=== PATIENT | female | born 1930 | race Caucasian/White ===

== ENCOUNTER 2020-01-27 09:20 | Emergency (ER) | payer MEDICARE ==
[~2020-01-27] VITALS: Ht 157.5 cm; Wt 45.4 kg
[~2020-01-27 09:20] MED LIST: ACET325T9 PO; BISA10SU4 PR; CALC200T23 PO; OLAN5TAB7 PO; PSYL3.4P PO
--- NOTE | 2020-01-27 09:37 | PHYS DOC ---
Past Medical History Past Medical History: Dementia, Unknown, Other Additional Past Medical Histor: UNKNOWN OTHER THAN "ANEURSYM" (DEVIN MONTES DE OCA APRN) Past Surgical History: Other Additional Past Surgical Histo: unknown (DEVIN MONTES DE OCA APRN) Smoking Status: Former Smoker Alcohol Use: None Drug Use: None (DEVIN MONTES DE OCA APRN) General Adult EDM: Chief Complaint: FACE PROBLEM HPI: HPI: Patient is a 89 year old female [facility] [place] for evaluation of facial redness and swelling that was noticed yesterday. She has not been given any new medications. She has not had any airway compromise. Per EMS report patient is alert to self which is her baseline. (DEVIN MONTES DE OCA APRN) Review of Systems: Review of Systems: Constitutional: Denies fever or chills. [] Eyes: Denies change in visual acuity. [] HENT: Denies nasal congestion or sore throat. [] Respiratory: Denies cough or shortness of breath. [] Cardiovascular: Denies chest pain or edema. [] GI: Denies abdominal pain, nausea, vomiting, bloody stools or diarrhea. [] : Denies dysuria. [] Musculoskeletal: Denies back pain or joint pain. [] Integument: Facial redness and swelling. [] Neurologic: Denies headache, focal weakness or sensory changes. [] Endocrine: Denies polyuria or polydipsia. [] Lymphatic: Denies swollen glands. [] Psychiatric: Denies depression or anxiety. [] (DEVIN MONTES DE OCA APRN) Heart Score: Risk Factors: Risk Factors: DM, Current or recent (<one month) smoker, HTN, HLP, family history of CAD, obesity. Risk Scores: Score 0 - 3: 2.5% MACE over next 6 weeks - Discharge Home Score 4 - 6: 20.3% MACE over next 6 weeks - Admit for Clinical Observation Score 7 - 10: 72.7% MACE over next 6 weeks - Early Invasive Strategies (DEVIN MONTES DE OCA APRN) Allergies: Allergies: Allergies Coded Allergies Type Severity Reaction Last Updated Verified codeine Adverse Reaction Intermediate CRAMPS 12/19/19 Yes (DEVIN MONTES DE OCA APRN) Physical Exam: PE: Constitutional: Well developed, well nourished, no acute distress, non-toxic appearance. [] HENT: Normocephalic, atraumatic, bilateral external ears normal, oropharynx moist, no oral exudates, nose normal, MAINTAINING OWN AIRWAY, NO OROPHARYNGEAL SWELLING. [] Eyes: PERRLA, EOMI, conjunctiva normal, no discharge. [] Neck: Normal range of motion, no tenderness, supple, no stridor. [] Cardiovascular:Heart rate regular rhythm, no murmur [] Lungs & Thorax: Bilateral breath sounds clear to auscultation [] Skin: Redness, warmth, swelling to bilateral cheeks under the eyes [] Extremities: No tenderness, no cyanosis, no clubbing, ROM intact, no edema. [] Neurologic: Alert and oriented X 3, normal motor function, normal sensory func tion, no focal deficits noted. [] Psychologic: Affect normal, judgement normal, mood normal. [] (DEVIN MONTES DE OCA APRN) PE: On my physical exam: Patient has got diffuse swelling with some erythema to the cheeks. No drainable abscess. Patient's airway is patent. (ELDA SOSA MD) Current Patient Data: Labs: Laboratory Tests Test 01/27/20 09:40 White Blood Count 7.8 x10^3/uL Red Blood Count 4.37 x10^6/uL Hemoglobin 11.8 g/dL Hematocrit 36.0 % Mean Corpuscular Volume 82 fL Mean Corpuscular Hemoglobin 27 pg Mean Corpuscular Hemoglobin Concent 33 g/dL Red Cell Distribution Width 14.4 % Platelet Count 218 x10^3/uL Neutrophils (%) (Auto) 75 % Lymphocytes (%) (Auto) 13 % Monocytes (%) (Auto) 9 % Eosinophils (%) (Auto) 2 % Basophils (%) (Auto) 1 % Neutrophils # (Auto) 5.8 x10^3/uL Lymphocytes # (Auto) 1.0 x10^3/uL Monocytes # (Auto) 0.7 x10^3/uL Eosinophils # (Auto) 0.1 x10^3/uL Basophils # (Auto) 0.1 x10^3/uL Sodium Level 144 mmol/L Potassium Level 3.6 mmol/L Chloride Level 106 mmol/L Carbon Dioxide Level 29 mmol/L Anion Gap 9 Blood Urea Nitrogen 16 mg/dL Creatinine 0.6 mg/dL Estimated GFR (Cockcroft-Gault) 94.6 BUN/Creatinine Ratio 27 Glucose Level 63 mg/dL Lactic Acid Level 1.1 mmol/L Calcium Level 9.2 mg/dL Total Bilirubin 0.5 mg/dL Aspartate Amino Transf (AST/SGOT) 29 U/L Alanine Aminotransferase (ALT/SGPT) 34 U/L Alkaline Phosphatase 96 U/L Total Protein 6.6 g/dL Albumin 3.6 g/dL Albumin/Globulin Ratio 1.2 Current Medications Medications (Trade) Dose Ordered Sig/Rocío Route PRN Reason Start Time Stop Time Status Last Admin Dose Admin Piperacillin Sod/ Tazobactam Sod (Zosyn Per Pharmacy) 1 each PRN DAILY PRN MC SEE COMMENTS 01/27/20 09:45 UNV Piperacillin Sod/ Tazobactam Sod 2.25 gm/Sodium Chloride 50 ml @ 100 mls/hr 1X ONCE IV 01/27/20 10:00 01/27/20 10:29 DC 01/27/20 10:17 Iohexol (Omnipaque 300 Mg/ml) 70 ml 1X ONCE IV 01/27/20 10:30 01/27/20 10:31 DC 01/27/20 10:43 Info (CONTRAST GIVEN -- Rx MONITORING) 1 each PRN DAILY PRN MC SEE COMMENTS 01/27/20 10:30 01/29/20 10:29 (DEVIN MONTES DE OCA APRN) EKG: EKG: [] (DEVIN MONTES DE OCA APRN) Radiology/Procedures: Radiology/Procedures: [DEEJAY: swelling, redness, warmth to bilat cheeks/face PROCEDURE: CT MAXILLOFACIAL W/CONTRAST Examination: CT MAXILLOFACIAL W/CONTRAST History: Reason: swelling, redness, warmth to bilat cheeks/face / Spl. Instructions: IV OMNI 300 70 MLS / History: Comparison/Correlation: None Findings: Axial images of the maxilla facial structures were obtained following IV contrast. Sagittal and coronal reformatted images were provided. Left suprasellar surgical clips are present.. Defects involving the left frontal and temporal region noted with postoperative mesh material. Mild ventriculomegaly noted. Chronic ischemic changes and white matter noted. Globes are unremarkable. Mucosal thickening of ethmoid air cells noted. Partial left frontal sinus opacification is noted. Mastoid air cells are clear. Partial opacification of the left external auditory canal noted. Right external auditory canal is unremarkable. Parotid glands unremarkable. Submandibular glands are unremarkable. Small left maxillary sinus mucus retention cyst is present. Minimal edema is suggested at the right lower eyelid region. No enhancement, collection, or stranding identified involving the subcutaneous soft tissues. Right temporomandibular joint degenerative disease present. Partially visualized pharynx unremarkable. Atlantoaxial joint degenerative narrowing is present. Reversal of cervical lordosis noted. C4-T7 disc space narrowing is notable. Minimal retrolisthesis of C5 in relation to C6. Impression: No suspicious swelling identified involving the visualized soft tissues. Electronically signed by: Rah Ramon MD (01/27/2020 11:01 AM) [id number] ] (DEVIN MONTES DE OCA APRN) Course & Med Decision Making: Course & Med Decision Making Pertinent Labs and Imaging studies reviewed. (See chart for details) [Vital signs stable, patient afebrile and nontoxic in appearance, labs within normal limits, CT maxillofacial negative for acute findings, patient has been given IV Zosyn, prescription for antibiotics, follow-up with primary care doctor and return to ER for new or worsening symptoms.] (DEVIN MONTES DE OCA APRN) Course & Med Decision Making I have personally interviewed and examined patient. All charts, labs and imaging studies were reviewed. I agreed with the PA/TRAFFIC OR SYSTEM DISPATCHER's findings, exam and plan of care (ELDA SOSA MD) Dragon Disclaimer: Dragon Disclaimer: This electronic medical record was generated, in whole or in part, using a voice recognition dictation system. (DEVIN MONTES DE OCA APRN) Departure Departure Impression: Primary Impression: Facial cellulitis Disposition: 02 DC/TRF OTHER SHORT TERM HOS ([facility]) Referrals: UNKNOWN PCP NAME (PCP) Patient Instructions: Cellulitis, [id number] Scripts Clindamycin Hcl (CLINDAMYCIN HCL) 300 Mg Capsule 300 MG PO QID for 10 Days, #40 CAP Prov: DEVIN MONTES DE OCA APRN 01/27/20 DEVIN MONTES DE OCA APRN Jan 27, 2020 09:37 ELDA SOSA MD Jan 27, 2020 14:53
[2020-01-27] MEDS ORDERED: PIP/TAZO PER PHARMACY MC PRN (09:45)
[2020-01-27 09:56] LABS: BASO # 0.1 x10^3/uL (0.0-0.2); BASO % 1 % (0-3); EOS # 0.1 x10^3/uL (0.0-0.7); EOS % 2 % (0-3); HEMOGLOBIN 11.8 g/dL (12.0-15.5); LYMPH % 13 % (24-48); MEAN CORPUSCULAR HEMOGLOBIN 27 pg (25-35); MEAN CORPUSCULAR HGB CONC 33 g/dL (31-37); MEAN CORPUSCULAR VOLUME 82 fL (79-100); MONO # 0.7 x10^3/uL (0.0-1.1); MONO % 9 % (0-9); NEUT # 5.8 x10^3/uL (1.8-7.7); NEUT % 75 % (31-73); PLATELET COUNT 218 x10^3/uL (140-400); RED BLOOD COUNT 4.37 x10^6/uL (3.50-5.40); RED CELL DISTRIBUTION WIDTH 14.4 % (11.5-14.5); WHITE BLOOD COUNT 7.8 x10^3/uL (4.0-11.0)
[2020-01-27] MEDS ORDERED: PIPERACILLIN/TAZOBACTAM 2.25 GM in IV NORMAL SALINE 50ML 50 ML IV ONE (10:00)
[2020-01-27 10:02] LABS: CALCIUM 9.2 mg/dL (8.5-10.1); CREATININE 0.6 mg/dL (0.6-1.0); GFR 94.6; POTASSIUM 3.6 mmol/L (3.5-5.1)
[2020-01-27 10:08] LABS: ALBUMIN 3.6 g/dL (3.4-5.0); ALBUMIN/GLOBULIN RATIO 1.2 (1.0-1.7); TOTAL BILIRUBIN 0.5 mg/dL (0.2-1.0); TOTAL PROTEIN 6.6 g/dL (6.4-8.2)
[2020-01-27] MEDS ORDERED: CONTRAST GIVEN. MC PRN (10:30)
[2020-01-27] MEDS ORDERED: IOHEXOL 300 MG/ML 100ML VIAL. IV ONE (10:30)
[2020-01-27 10:38] VITALS: BP 154/71
--- NOTE | 2020-01-27 11:04 | RAD ---
Examination: CT MAXILLOFACIAL W/CONTRAST History: Reason: swelling, redness, warmth to bilat cheeks/face / Spl. Instructions: IV OMNI 300 70 MLS / History: Comparison/Correlation: None Findings: Axial images of the maxilla facial structures were obtained following IV contrast. Sagittal and coronal reformatted images were provided. Left suprasellar surgical clips are present.. Defects involving the left frontal and temporal region noted with postoperative mesh material. Mild ventriculomegaly noted. Chronic ischemic changes and white matter noted. Globes are unremarkable. Mucosal thickening of ethmoid air cells noted. Partial left frontal sinus opacification is noted. Mastoid air cells are clear. Partial opacification of the left external auditory canal noted. Right external auditory canal is unremarkable. Parotid glands unremarkable. Submandibular glands are unremarkable. Small left maxillary sinus mucus retention cyst is present. Minimal edema is suggested at the right lower eyelid region. No enhancement, collection, or stranding identified involving the subcutaneous soft tissues. Right temporomandibular joint degenerative disease present. Partially visualized pharynx unremarkable. Atlantoaxial joint degenerative narrowing is present. Reversal of cervical lordosis noted. C4-T7 disc space narrowing is notable. Minimal retrolisthesis of C5 in relation to C6. Impression: No suspicious swelling identified involving the visualized soft tissues. Electronically signed by: Rah Ramon MD (01/27/2020 11:01 AM) [id number]
[2020-01-27] MEDS ORDERED: CLIN300C9 PO (11:14)
== END 2020-01-27 12:15 | disposition short-term general hospital (02) ==
LOC: ER 09:20
DX: L03.211 Cellulitis of face (principal); F03.90 Unspecified dementia, unspecified severity, without behavioral disturbance, psychotic disturbance, mood disturbance, and anxiety; Z87.891 Personal history of nicotine dependence; Z88.5 Allergy status to narcotic agent
CPT/HCPCS: 36415; 70487; 80053; 83605; 85025; 87040; 96365; 99285; J2543; Q9967